=== PATIENT | female | born 1975 | race Hispanic/Latino ===

== ENCOUNTER 2022-07-27 17:23 | Emergency (ER) | payer OTHER ==
[~2022-07-27] VITALS: Ht 152.4 cm; Wt 93.9 kg
[~2022-07-27 17:23] MED LIST: IBUPROFEN400 MG PO
[2022-07-27] MEDS ORDERED: NAPROSYN500 MG PO (18:04)
[2022-07-27 18:30] VITALS: BP 129/77
== END 2022-07-27 18:31 | disposition home or self-care (01) ==
LOC: ER 17:29
DX: M25.562 Pain in left knee (principal)
CPT/HCPCS: 99283